=== PATIENT | female | born 1965 | race African-American/Black ===

== ENCOUNTER 2016-07-25 17:32 | Emergency (ER) | payer MEDICAID ==
[~2016-07-25] VITALS: Ht 160 cm; Wt 102.9 kg
[~2016-07-25 17:32] MED LIST: ATEN50TA41 PO; CLIN300C93 PO; HYDR-3138 PO; LOSA50TA6 PO; SIMV10TA PO
[2016-07-25 17:38] VITALS: BP 160/100
[2016-07-25] MEDS ORDERED: DEXAMETHASONE 4 MG TABLET ONE (18:40)
[2016-07-25] MEDS ORDERED: DEXAMETHASONE 4 MG TABLET PO ONE (19:00)
== END 2016-07-25 19:06 | disposition home or self-care (01) ==
LOC: ED 19:00
DX: J06.9 Acute upper respiratory infection, unspecified (principal); J02.0 Streptococcal pharyngitis; I10 Essential (primary) hypertension
CPT/HCPCS: 99283

== ENCOUNTER 2016-11-10 17:25 | Emergency (ER) | payer MEDICAID ==
[~2016-11-10] VITALS: Ht 160 cm; Wt 102.1 kg
[~2016-11-10 17:25] MED LIST changes: +CLIN300C8 PO; -CLIN300C93 PO; -HYDR-3138 PO; +HYDR-3237 PO
[2016-11-10 17:26] VITALS: BP 181/125
[2016-11-10] MEDS ORDERED: OXYcodone/APAP 5/325MG TABLET ONE ×2 (18:21→21:23)
[2016-11-10] MEDS ORDERED: ONDANSETRON ODT 4 MG ONE (18:21)
[2016-11-10] MEDS ORDERED: LORazepam 1MG TABLET ONE (18:21)
[2016-11-10] MEDS ORDERED: LIDOCAINE 1%, 20ML SQ ONE (18:30)
[2016-11-10] MEDS ORDERED: OXYcodone/APAP 5/325MG TABLET PO ONE ×2 (18:30→21:30)
[2016-11-10] MEDS ORDERED: LORazepam 1MG TABLET PO ONE (18:30)
[2016-11-10] MEDS ORDERED: ONDANSETRON ODT 4 MG PO ONE (18:30)
[2016-11-10] MEDS ORDERED: LIDOCAINE 1%, 20ML ONE (20:37)
[2016-11-10] MEDS ORDERED: CEPHALEXIN 500 MG CAPSULE PO STA (21:17)
[2016-11-10] MEDS ORDERED: CEPHALEXIN 500 MG CAPSULE ONE (21:23)
[2016-11-10] MEDS ORDERED: SULFAMETH./TRIMETHOPRIM DS 800MG/160MG TABLET ONE (21:23)
[2016-11-10] MEDS ORDERED: SULFAMETH./TRIMETHOPRIM DS 800MG/160MG TABLET PO ONE (21:30)
[2016-11-10] MEDS ORDERED: CEPHALEXIN 500 MG CAPSULE PO ONE (22:00)
== END 2016-11-10 21:48 | disposition home or self-care (01) ==
LOC: ED 21:47
DX: L02.411 Cutaneous abscess of right axilla (principal); I10 Essential (primary) hypertension; S40.022A Contusion of left upper arm, initial encounter; X58.XXXA Exposure to other specified factors, initial encounter; Y93.89 Activity, other specified; Y99.8 Other external cause status; Y92.89 Other specified places as the place of occurrence of the external cause
CPT/HCPCS: 76882; 99284; Q0162